=== PATIENT | male | born 1985 | race Caucasian/White ===

== ENCOUNTER 2018-05-20 20:32 | Emergency (ER) | payer SELFPAY ==
[~2018-05-20] VITALS: Ht 170.2 cm; Wt 69.0 kg
[2018-05-20 21:09] VITALS: BP 145/79
== END 2018-05-20 21:32 | disposition left against medical advice (07) ==
LOC: ER 20:32
DX: Z53.21 Procedure and treatment not carried out due to patient leaving prior to being seen by health care provider (principal)